=== PATIENT | female | born 1975 | race American Indian/Alaskan Native ===

== ENCOUNTER 2017-11-09 13:13 | Outpatient (CLI) | payer OTHER ==
[2017-11-10] MEDS ORDERED: PRENATAL TABLE1 EAC3 PO (15:00)
[2017-11-10] MEDS ORDERED: SYNTHROID100 MCG PO (15:01)
== END 2017-11-09 13:44 | disposition home or self-care (01) ==
LOC: NST 13:13
DX: Z34.83 Encounter for supervision of other normal pregnancy, third trimester (principal)

== ENCOUNTER 2017-11-10 14:20 | Inpatient (IN) | payer OTHER ==
[~2017-11-10] VITALS: Ht 147.3 cm; Wt 59.0 kg
[2017-11-10] MEDS ORDERED: PRENATAL TABLE1 EAC3 PO (15:00)
[2017-11-10] MEDS ORDERED: SYNTHROID100 MCG PO (15:01)
== END 2017-11-12 12:01 | DRG 774 ==
LOC: LDR 14:20 → OB/GYN 14:20 → LDR 15:04 → OB/GYN 11-11 11:11
PROC: 4A1HXCZ Monitoring of Products of Conception, Cardiac Rate, External Approach (ICD-10-PCS; 2017-11-10)
PROC: BY4CZZZ Ultrasonography of Second Trimester, Single Fetus (ICD-10-PCS; 2017-11-10)
PROC: 10E0XZZ Delivery of Products of Conception, External Approach (ICD-10-PCS; principal; 2017-11-11)
PROC: 3E033VJ Introduction of Other Hormone into Peripheral Vein, Percutaneous Approach (ICD-10-PCS; 2017-11-11)
DX: O36.4XX0 Maternal care for intrauterine death, not applicable or unspecified (principal); O67.8 Other intrapartum hemorrhage; O60.13X0 Preterm labor second trimester with preterm delivery third trimester, not applicable or unspecified; O41.1420 Placentitis, second trimester, not applicable or unspecified; Z3A.21 21 weeks gestation of pregnancy; Z37.1 Single stillbirth

== ENCOUNTER → 2024-09-08 10:05 | Outpatient (CLI) | payer OTHER ==
[~2024-09-08 10:05] MED LIST: PRENATAL TABLE1 EAC3 PO; SYNTHROID100 MCG PO
== END | disposition home or self-care (01) ==
LOC: PRENATAL 10:05
PROVIDERS: ATTEND Obstetrics & Gynecology Maternal & Fetal Medicine
DX: Z76.1 Encounter for health supervision and care of foundling (principal)

== ENCOUNTER 2025-04-05 14:23 | Day surgery (SDC) | payer OTHER ==
[~2025-04-05] VITALS: Ht 147.3 cm; Wt 63.0 kg
[2025-04-05] MEDS ORDERED: LEVOTHYROXINE25 MCG (14:24)
--- NOTE | 2025-04-05 14:25 | NUR ---
PTE ALERTA Y ORIENTADA X3, PTE DEL QUIEN REFIERE ESTA TENIENDO UN ABORTO Y EL LE HANDY UN MEDICAMENTO PARA QUE TERMINARA DE ABORTAR (MISOPROSTOL 100MG). PTE REFIERE NO SE MOHAN TOMADO MEDICAMENTO PORQUE TIENE MUCHO DOLOR PELVICO Y SANGRADO VAGINAL. SE ROSANNE SV Y SE UBICA .
[2025-04-05] MEDS ORDERED: 0.9 % SODIUM CHLORIDE 500 ML IV ONE (16:45)
[2025-04-05 18:05] LABS: BASO % 0.4 % (0.1-1.2); EOS # 0.17 (0.04-0.54); EOS % 1.2 % (0.7-7.0); LYMPH # 2.71 (1.18-3.74); LYMPH % 18.5 % (19.3-53.1); MEAN PLATELET VOLUME 9.30 fl (9.4-12.4); MONO # 0.57 (0.24-0.82); MONO % 3.9 % (4.7-12.5); NEUT # 11.11 (1.56-6.13); NEUT % 75.7 % (34.0-71.1); RED CELL DISTRIBUTION WIDTH 13.7 % (11.6-14.4)
[2025-04-05 18:26] LABS: INR 0.98
[2025-04-05 18:30] LABS: ALT/SGPT 22.0 U/L (12-78); AST/SGOT 27.0 U/L (15-37); BILIRUBIN TOTAL 0.28 mg/dL (0.3-1.2); BUN CREA RATIO 11.0 (7.0-25.0); CREATININE SERUM 0.57 mg/dL (0.55-1.02); GFR 111.82; GLOBULINA 3.9 G/DL (2.4-3.5); GLUCOSE FASTING 91.0 mg/dL (65-100); OSMOLALITY SERUM 277.0 MOSM/KG (275-295)
[2025-04-05] MEDS ORDERED: MORPHINE SULFATE 4 MG/ML VIAL IV ONE (20:15)
[2025-04-05] MEDS ORDERED: POVIDONE-IODINE 118 ML BOTT TOP ONE (20:45)
[2025-04-06 02:34] VITALS: BP 107/72; O2SAT 100
== END 2025-04-06 02:31 | disposition home or self-care (01) ==
LOC: CIR.AMB 14:23 → ER 14:23 → CIR.AMB 14:23 → ER 17:41 → O/R 17:41 → CIR.AMB 04-06 02:31
PROVIDERS: General Practice; ATTEND Emergency Medicine
DX: O03.4 Incomplete spontaneous abortion without complication (principal)